=== PATIENT | male | born 1940 | race Caucasian/White ===

== ENCOUNTER → 2018-05-20 | Outpatient (CLI) | payer MEDICARE ==
[~2018-05-20] MED LIST: ASPI-650 PO; ATOR40TA78 PO; CEFD300C37 PO; FINA5TAB4 PO; GABA300C10 PO; GEMF600T PO; GLUC15006 PO; IBUP1TAB11 PO; LEVO50TA5 PO; LEVO750T26 PO; LISI5TAB7 PO; METF500T17; METF850T10 PO; MINO100C PO; NITR0.4T SL; SIMV10TA3 PO; SIMV1POW; TAMS-11; TIMO5DRO5 EACHEYE
== END | disposition home or self-care (01) ==
LOC: CVU 11:28
PROVIDERS: ATTEND Internal Medicine Cardiovascular Disease
DX: I08.0 Rheumatic disorders of both mitral and aortic valves (principal); I21.4 Non-ST elevation (NSTEMI) myocardial infarction; Z86.74 Personal history of sudden cardiac arrest; Z87.891 Personal history of nicotine dependence
CPT/HCPCS: 93306

== ENCOUNTER → 2019-09-21 | Outpatient (CLI) | payer MEDICARE ==
[~2019-09-21] MED LIST changes: -MINO100C PO; +MINO100C61 PO; -NITR0.4T SL; +NITR0.4T41 SL; +OMNIPAQUE 350 MG/ML, 100ML BOTTLE ONE; +SIMV10TA18 PO; -SIMV10TA3 PO
== END | disposition home or self-care (01) ==
LOC: CFH 11:00
PROVIDERS: ATTEND Internal Medicine Hematology & Oncology
DX: C83.07 Small cell B-cell lymphoma, spleen (principal); D72.820 Lymphocytosis (symptomatic); K76.0 Fatty (change of) liver, not elsewhere classified; K40.90 Unilateral inguinal hernia, without obstruction or gangrene, not specified as recurrent; K44.9 Diaphragmatic hernia without obstruction or gangrene; R16.1 Splenomegaly, not elsewhere classified; K80.20 Calculus of gallbladder without cholecystitis without obstruction; N28.89 Other specified disorders of kidney and ureter; N20.0 Calculus of kidney; M51.36 Other intervertebral disc degeneration, lumbar region; E27.8 Other specified disorders of adrenal gland
CPT/HCPCS: 74177; Q9967

== ENCOUNTER → 2019-11-18 | Outpatient (CLI) | payer MEDICARE ==
[~2019-11-18] MED LIST changes: -OMNIPAQUE 350 MG/ML, 100ML BOTTLE ONE
== END | disposition home or self-care (01) ==
LOC: PETCFH 09:40
PROVIDERS: ATTEND Internal Medicine Hematology & Oncology
DX: C83.07 Small cell B-cell lymphoma, spleen (principal); N28.89 Other specified disorders of kidney and ureter; D35.02 Benign neoplasm of left adrenal gland; D72.820 Lymphocytosis (symptomatic); K80.20 Calculus of gallbladder without cholecystitis without obstruction; K44.9 Diaphragmatic hernia without obstruction or gangrene
CPT/HCPCS: 78815; A9552

== ENCOUNTER 2019-12-23 07:02 | Day surgery (SDC) | payer MEDICARE ==
[~2019-12-23] VITALS: Ht 180.3 cm; Wt 81.2 kg
[2019-12-23 07:45] VITALS: BP 160/80
[2019-12-23] MEDS ORDERED: ASPI325T17 PO (07:56)
[2019-12-23] MEDS ORDERED: AMLO2.5T5 PO (07:56)
[2019-12-23] MEDS ORDERED: LEVO75TA5 PO (07:56)
[2019-12-23] MEDS ORDERED: IBRU140C PO (07:56)
[2019-12-23] MEDS ORDERED: ATOR10TA9 PO (07:56)
[2019-12-23] MEDS ORDERED: GABA300C PO (07:56)
[2019-12-23] MEDS ORDERED: METF850T10 PO (07:56)
[2019-12-23] MEDS ORDERED: ISOS30TA8 PO (07:56)
[2019-12-23] MEDS ORDERED: SODIUM CHLORIDE 0.9% 1,000 ML IV SCH (08:00)
[2019-12-23 08:27] LABS: INTERNATIONAL NORMALIZED RATIO 1.03 (0.93-1.1); PROTHROMBIN TIME 10.6 Seconds (9.6-11.5)
[2019-12-23] MEDS ORDERED: NALOXONE 1 MG/ML, 2ML ONE (09:31)
[2019-12-23] MEDS ORDERED: FLUMAZENIL 0.1 MG/1 ML, 5ML ONE (09:31)
[2019-12-23] MEDS ORDERED: MIDAZOLAM 1 MG/ML, 5ML ONE (09:31)
[2019-12-23] MEDS ORDERED: FENTANYL PF 100 MCG/2ML ONE ×2 (09:31)
[2019-12-23] MEDS ORDERED: OMNIPAQUE 350 MG/ML, 100ML BOTTLE ONE (10:36)
== END 2019-12-23 11:30 | disposition home or self-care (01) ==
LOC: OUT 07:02 → EDSTATUS 09:00 → OUT 11:30
PROVIDERS: ATTEND Urology
DX: N28.89 Other specified disorders of kidney and ureter (principal); C64.2 Malignant neoplasm of left kidney, except renal pelvis; I10 Essential (primary) hypertension; E11.9 Type 2 diabetes mellitus without complications; I25.2 Old myocardial infarction; Z79.84 Long term (current) use of oral hypoglycemic drugs; Z79.890 Hormone replacement therapy; Z79.899 Other long term (current) drug therapy; Z87.891 Personal history of nicotine dependence; Z88.0 Allergy status to penicillin; Z88.7 Allergy status to serum and vaccine; Z82.49 Family history of ischemic heart disease and other diseases of the circulatory system; Z80.3 Family history of malignant neoplasm of breast; Z80.8 Family history of malignant neoplasm of other organs or systems
CPT/HCPCS: 36415; 50200; 77012; 85610; 88305; 99156; 99157; J2250; J3010; J7030; Q9967; J2310

== ENCOUNTER 2020-01-17 09:50 | Outpatient (CLI) | payer MEDICARE ==
[~2020-01-17 09:50] MED LIST changes: +AMLO2.5T5 PO; +ASPI325T17 PO; +ATOR10TA9 PO; +GABA300C PO; +IBRU140C PO; +ISOS30TA8 PO; +LEVO75TA5 PO
== END 2020-01-17 23:59 | disposition home or self-care (01) ==
LOC: RAD 09:50
PROVIDERS: ATTEND Urology
DX: Z02.9 Encounter for administrative examinations, unspecified (principal)

== ENCOUNTER → 2020-04-24 | Outpatient (CLI) | payer MEDICARE ==
[~2020-04-24] MED LIST changes: -ASPI-650 PO; +ASPI325T20 PO; +GADOTERATE 10 MMOL/20 ML VIAL ONE
== END | disposition home or self-care (01) ==
LOC: RAD 12:16 → EDSTATUS 12:45
PROVIDERS: ATTEND Urology
DX: N28.89 Other specified disorders of kidney and ureter (principal); K80.20 Calculus of gallbladder without cholecystitis without obstruction
CPT/HCPCS: 74183; A9575